=== PATIENT | female | born 1935 ===

== ENCOUNTER 2024-07-30 13:10 | Outpatient (AMB) | payer MEDICARE, SELFPAY ==
--- NOTE | 2024-07-30 13:13 | MHC.PC.OV ---
Vital Signs 07/30/24 13:27 07/30/24 14:14 Height 5 ft 6 in Weight 160 lb BMI 25.8 BP 162/77 H 130/76 Blood Pressure Location Lt brachial Lt brachial Position Sitting Sitting Respiration 16 Pulse 64 Pulse Source Pulse Oximeter Temp 98.7 F Temp Source Oral Pulse Oximetry (%) 97 Oxygen Delivery Method Room Air Intake Visit Reasons: [facility] Care/ Prescriptions Intake Note: patient here for new patient visit needs prescription. 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 Is last menstrual period known: No Post menopausal: No Patient : No Allergies Penicillins Allergy (Intermediate, Verified 07/30/24 13:42) Rash Medication List - Last Reconciled 07/30/24 by Aayush Roach CNP alendronate 70 mg PO QWEEK hydrochlorothiazide 25 mg PO DAILY letrozole 2.5 mg PO DAILY levothyroxine (Synthroid) mcg PO losartan 50 mg PO DAILY metoprolol succinate ER mg PO omeprazole 20 mg PO DAILY Tobacco use date assessed: 07/30/24 Fall risk assessment: 2 + Falls in past year Last assessed Fall Risk: 07/30/24 Dental Screening Dental Screen Date: 07/30/24 Did you have a dental visit in the last 12 months?: Yes Did you have a dental problem in the last 6 months where you did not have access to dental care?: No Was dental information given to patient?: Patient has dentist HPI HPI Comments History of Present Illness Details 89-year-old female, accompanied by her niece, presents to [facility]. She admits to taking her medications as prescribed without adverse reactions. Prior PCP? - Dr. Ricardo [facility] Last office visit - 6 months ago Last CPE/labs - Over a year Acute issue(s) - Wheelchair bound. She notes that she developed abnormal gait after she completed chemo/radiation for endometrial cancer in 2019. Her lower extremities became weak and would fall with walking. She currently receives OT twice weekly. She has history of home PT twice weekly; awaiting health insurance approval to resume PT. - Reports chronic fatigue following chemo and radiation therapy for endometrial cancer in 2019. 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 She notes burning sensation to the left foot especially at night. She tried gabapentin without relief. Past Medical History - Hypertension, hypothyroidism, GERD, osteoporosis, back disorder, endometriosis cancer, macular degeneration both eyes, urinary incontinence (r/t radiation), neuropathy Surgical History - Thyroidectomy, total hysterectomy, bilateral knee replacement, left hip replacement, cataract surgery both eyes Family History - Social History - Nonsmoker. Does not vape. Does not drink alcohol. Denies recreational drug use - Has been making healthy dietary choices. Exercises routinely. Generally sleep well Health maintenance - Last was in 08/[address] Sullivan - Last dental visit was 3 months ago - Last tetanus vaccine is within 10 years - Has not been vaccinated for the flu this season; declines vaccination - She notes that she is up-to-date on shingles and pneumonia vaccines - She no longer perform pap smear - Last mammogram was 3 years ago: Densed breast tissue. She no longer wish to continue mammogram - Last colonoscopy 25 years ago: Normal. She no longer performs colonoscopy - Last dexa scan in the fall Specialists [facility] endocrinology, oncology, and urology Retina specialist at [facility] Dr Sullivan, department of natural resources officer [facility] Medical History (Updated 07/30/24 @ 14:26 by Aayush Roach CNP) Cataract Endometrial cancer Neuropathy Incontinence Back disorder Swelling of both ankles Osteoporosis Arthritis FH: thyroid disease High blood pressure Surgical History (Updated 07/30/24 @ 13:48 by Eliz Mckeon MA) History of thyroidectomy H/O: hysterectomy History of bilateral knee replacement History of left hip replacement Social History Housing: House Patient Tobacco Use Status: Never used Tobacco e-Cigarette/Vaping Use: Never Used Second Hand Smoke Exposure: No service: No Current occupational status: retired Current occupational exposures/hazards: No Cognitive needs: Yes Hearing needs: No Vision needs: Yes Questionnaire PHQ-9 Over the last 2 weeks, how often have you been bothered by any of the following problems? 1. Little interest or pleasure in doing things: not at all 2. Feeling down, depressed, or hopeless: not at all 3. Trouble falling or staying asleep, or sleeping too much: not at all 4. Feeling tired or having little energy: more than half the days 5. Poor appetite or overeating: not at all 6. Feeling bad about yourself - or that you are a failure or have let yourself or your family down: not at all 7. Trouble concentrating on things, such as reading the newspaper or watching television: not at all 8. Moving or speaking so slowly that other people could have noticed. Or the opposite - being so fidgety or restless that you have been moving around a lot more than usual: not at all 9. Thoughts that you would be better off or of hurting yourself in some way: not at all Total score: 2 Depression Screening Interpretation: Negative Depression Screening Done: Yes 20133 - PHQ-9 Billing: Yes Source: Developed by Drs. Aaron Sanchez, Leanne Cornell, Chad Pierce and colleagues, with an educational paola from [employer]. Thrive Questionnaire Date Thrive assessed: 07/30/24 I am a: Patient What is your living situation today?: I choose not to answer this question Within the past 12 months, did the food you bought not last and you didn't have the money to get more?: I choose not to answer this question Within the past 12 months, did you worry whether your food would run out before you got money to buy more?: Never true Do you have trouble paying for medicines?: I choose not to answer this question Do you have trouble getting transportation to medical appointments?: Yes Do you have trouble paying your heating and electricity bill?: I choose not to answer this question Do you have trouble taking care of your child, family member or friend?: I choose not to answer this question Do you have trouble with day-to-day activities such as bathing, preparing meals, shopping, managing finances, etc.?: I choose not to answer this question Are you currently unemployed and looking for a job?: No Are you interested in more education?: No Please select the resources that you would like help with: Transportation and Care for elder or disabled Currently or been in a relationship where the following occur: I choose not to answer THRIVE Score: 1 AUDIT C Alcohol Use Questionnaire (AUDIT-C) 1. How often do you have a drink containing alcohol?: Never 3. How often do you have six or more drinks on one occasion?: Never Total Score: 0 Score Reviewed/Action Taken: Yes LANDON-7 AMB Questionnaire LANDON-7 Date LANDON - 7 assessed: 07/30/24 Feeling nervous, anxious, or on edge: 0 = Not at all Not being able to stop or control worryin = Not at all Worrying too much about different things: 0 = Not at all Trouble relaxin = Not at all Being so restless that it is hard to sit still: 0 = Not at all Becoming easily annoyed or irritable: 0 = Not at all Feeling afraid as if something awful might happen: 0 = Not at all Total LANDON-7 score (0-4 normal; 5-9 mild; 10-14 moderate; 15-21 severe): 0 Source: Developed by Drs. Aaron Sanchez, Leanne Cornell, Chad Pierce and colleagues, with an educational paola from [employer]. LANDON-7 Assessment Billing LANDON-7 Assessment Tool: LANDON-7 Assessment 34848 Review of Systems Const Details: Denies chills, Reports fatigue, Denies fever(s), Denies headache(s) and Denies weakness HEENT Denies change in vision, Denies dizziness, Denies headache(s), Denies hearing loss, Denies nasal congestion, Denies sinus pain, Denies sinus pressure and Denies sore throat Card Denies chest pain, Denies lightheadedness, Denies dyspnea and Denies other (palpitations) Resp Denies cough, Denies dyspnea and Denies wheezing GI Denies abdominal pain, Denies melena, Denies hematochezia, Denies change in bowel habits, Denies dyspepsia and Denies nausea Denies hematuria and Denies dysuria Musc Denies abnormal gait, Denies myalgias, Denies arthralgias, Denies numbness and Denies tingling Skin/Breast Denies rash, Denies unusual bruising and Denies wounds Neuro Denies abnormal gait, Denies dizziness, Denies headache(s), Denies memory loss, Denies numbness, Denies Sensory deficit (Neuro), Denies tingling and Denies weakness Psych Denies anxiety, Denies depression and Denies memory loss Endo Denies cold intolerance, Reports fatigue, Denies heat intolerance, Denies polydipsia and Denies polyuria Geoff/Lymph Denies easy bleeding and Denies easy bruising Aller/Immun Denies wheezing Physical exam (Primary Care) Vital Signs: Last Vital Signs Temp 98.7 F 07/30/24 13:27 Pulse 64 07/30/24 13:27 Resp 16 04/29/25 13:27 BP 162/77 H 07/30/24 13:27 Pulse Ox 97 07/30/24 13:27 Oxygen Delivery Method Room Air 07/30/24 13:27 BMI result Body Mass Index 25.8 Tobacco/Smoking Status: Tobacco use Status Tobacco use date assessed 07/30/24 07/30/24 13:18 Patient Tobacco Use Status Never used Tobacco 07/30/24 13:27 e-Cigarette/Vaping Use Never Used 07/30/24 13:27 PHQ-9: PHQ-9 Score PHQ-9: Total score 2 07/30/24 13:18 Depression Screening Interpretation: Negative Thrive Assessment: Date of Thrive Assessment Date Thrive assessed 07/30/24 07/30/24 13:18 Currently or been in a relationship where the following occur: I choose not to answer Const Other: General: no acute distress, well developed, alert and awake Nutritional Appearance: well nourished Orientation/consciousness: patient oriented x3 HENMT Head: Yes normocephalic and Yes atraumatic Ears: hearing grossly normal bilaterally and TM's normal bilaterally General nose exam: Normal external nose present and Normal nares present Mouth: Normal oral and palatal mucosa present and moist mucous membranes Teeth and gingiva: dentition normal Throat: Yes oropharynx normal Eyes Pupils: Equal, round and reactive pupils present and Pupil accommodation reflex normal EOM: EOMs intact bilaterally Neck Neck: Yes normal visual inspection, Yes no lymphadenopathy and Yes trachea midline Thyroid: Thyroid normal Carotids: no bruits Lymphatic: no lymphadenopathy noted Chest Chest palpation & inspection: normal inspection of the chest Resp Effort & Inspection: normal respiratory effort Auscultation: clear to auscultation bilaterally Cardio Rate: regular rate Rhythm: regular rhythm Heart sounds: S1 normal heart sound present, S2 normal heart sound present, no gallops, no murmurs and no rubs Bruits: no abdominal aortic bruits and no carotid bruits GI Palpation (GI): No Abdominal aortic bruit present, Soft to palpation, nontender, No hepatosplenomegaly present and No Rebound tenderness present Auscultation: normal bowel sounds General: Yes no CVA tenderness Back/Spine/Pelvis Back: no CVA tenderness Cervical Spine: cervical ROM normal and No Cervical spine tenderness Thoracic/Lumbar Spine: thoraco-lumbar ROM normal, No pain with thoraco-lumbar ROM, No thoracic spinal tenderness and No lumbar spinal tenderness Skin General: warm and dry. Normal skin color. Normal skin turgor Lesions: no lesions Rashes: no rashes Trauma: no lacerations or abrasions Wounds: no wounds Nails: normal Neuro General: patient oriented x3, gait normal and CN's II-XI intact bilaterally Cranial nerves: Yes Equal, round and reactive pupils present Cognition (Neuro): normal cognition Gait exam (Neuro): Not assessed Motor exam (neuro): 5/5 motor strength present throughout Sensory Exam: No Sensory deficit (Neuro) Deep tendon reflexes (DTR's): Not assessed Extrem General: Yes normal to inspection, No edema and No calf tenderness Psych Appearance: grossly normal Affect: normal affect Attitude: cooperative Thought process: Normal thought process present Coding Level of Care Code New Pt Level 3 (75089) New Pt Prev Care >65yr (17466) Diagnoses Encounter for routine adult physical exam with abnormal findings Z00.01 High blood pressure I10 Neuropathy of left foot G57.92 Chronic fatigue R53.82 Laboratory tests ordered as part of a complete physical exam (CPE) Z00.00 Additional Codes LANDON-7 Assessment Billing - LANDON-7 Assessment Tool: LANDON-7 Assessment 92539 ([id number]) PHQ-9 - 59017 - PHQ-9 Billing: Yes ([id number]) Assessment & Plan Assessment & Plan (1) Encounter for routine adult physical exam with abnormal findings: Code(s): Z00.01 - Encounter for general adult medical examination with abnormal findings Category: Medical Plan: Significant functional limitation noted due to chronic lower extremity weakness. Patient is wheelchair-bound. She had a fall in March 2024. Instructed on safety to prevent fall. Continue current treatment regimen. Healthy diet and routine exercise encouraged. Verbalized understanding and agreed with the plan. (2) High blood pressure: Code(s): I10 - Essential (primary) hypertension Category: Medical Plan: Resting blood pressure is 130/76, within goal of less than 140/90. Continue current treatment regimen. Will continue to monitor. Verbalized understanding and agreed with the plan. 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 She notes burning sensation to the left foot especially at night. She tried gabapentin without relief. Will check vitamin B12 and folate levels. May take Tylenol ibuprofen as needed for pain or discomfort. Warm/cool compresses encouraged. Follow-up as needed. Verbalized understanding and agreed with the plan. (4) Chronic fatigue: Code(s): R53.82 - Chronic fatigue, unspecified Category: Medical Plan: Reports chronic fatigue following chemo and radiation therapy for endometrial cancer in 2019. Likely related to chem and radiation therapy. Will check labs and make changes as needed. Verbalized understanding and agreed with the plan. (5) Laboratory tests ordered as part of a complete physical exam (CPE): Code(s): Z00.00 - Encounter for general adult medical examination without abnormal findings Category: Medical Plan: Fasting labs ordered as part of a complete physical exam. Advised to fast for at least 10 hours before getting labs drawn. May drink water Verbalized understanding and agreed with treatment plan. Orders: Orders Comprehensive Graham. Panel Fast Today Z00.00 - Encounter for general adult medical examination without abnormal findings Lipid Panel Today Z00.00 - Encounter for general adult medical examination without abnormal findings TSH reflex Free T4 Today Z00.00 - Encounter for general adult medical examination without abnormal findings Vitamin B12 and Folate Today Z00.00 - Encounter for general adult medical examination without abnormal findings UA CC w/rflx Micro + Cult Today Z00.00 - Encounter for general adult medical examination without abnormal findings Complete Blood Count Auto Diff Today Z00.00 - Encounter for general adult medical examination without abnormal findings Microalbumin, Random (w Creat) Today Z00.00 - Encounter for general adult medical examination without abnormal findings Vitamin D 25-OH Total Today G57.92 - Unspecified mononeuropathy of left lower limb
[2024-07-30 13:27] VITALS: BP 162/77; PULSE 64; RESP 16; TEMP 37.1; O2SAT 97; BMI 25.8
[2024-07-30 14:14] VITALS: BP 130/76
== END 2024-07-30 14:28 | disposition home or self-care (01) ==
LOC: HO.HMCFM 13:10
PROVIDERS: PCP Nurse Practitioner Family; Visit Provider Nurse Practitioner Family
DX: I10 Essential (primary) hypertension (principal); G57.92 Unspecified mononeuropathy of left lower limb; R53.82 Chronic fatigue, unspecified

== ENCOUNTER → 2024-07-30 13:10 | Outpatient (BNVA) | payer MEDICARE, SELFPAY | PROVIDERS: PCP Nurse Practitioner Family; Visit Provider Nurse Practitioner Family | DX: Z00.01 Encounter for general adult medical examination with abnormal findings (principal); I10 Essential (primary) hypertension; G57.92 Unspecified mononeuropathy of left lower limb; R53.82 Chronic fatigue, unspecified | CPT/HCPCS: 96127; 99202 ==

== ENCOUNTER 2024-08-13 14:23 | Outpatient (REF) | payer MEDICARE, SELFPAY ==
[2024-08-13 18:04] LABS: MANUAL DIFF FLAG NO
[2024-08-13 18:13] LABS: Basophils Percent Auto 0.7 % (0-2); Eosinophils Absolute Auto 0.1 X10*3/uL (0.0-0.4); Eosinophils Percent Auto 2.1 % (0-4); Hematocrit 34.8 % (37.0-47.0); Hemoglobin 11.7 g/dl (12.0-16.0); Imm Gran Abs Auto 0.03 X10*3/uL (0.00-0.03); Imm Gran Pct Auto 0.5 % (0.0-0.4); Lymphocytes Absolute Auto 1.3 X10*3/uL (1.2-4.9); Lymphocytes Percent Auto 22.7 % (20-40); Mean Corpuscular HGB Conc 33.6 g/dl (31.0-35.0); Mean Corpuscular Hemoglobin 34.2 pg (27.0-33.0); Mean Corpuscular Volume 101.8 fL (80.0-98.0); Mean Platelet Volume 10.9 fL (9.4-12.3); Monocytes Absolute Auto 0.7 X10*3/uL (0.1-1.2); Monocytes Percent Auto 11.6 % (2-11); Neutrophils Absolute Auto 3.5 x10*3/uL (2.0-8.3); Neutrophils Percent Auto 62.4 % (45-73); Platelet Count 282 X10*3/uL (160-400); Red Blood Count 3.42 X10*6/uL (4.20-5.50); Red Cell Distribution Width 13.2 % (11.0-16.0); White Blood Count 5.7 X10*3/uL (4.8-10.8)
[2024-08-13 18:42] LABS: Alanine Aminotransferase 11 U/L (0-31); Alkaline Phosphatase 44 U/L (39-117); Anion Gap 15 (12-20); Aspartate Amino Transferase 23 U/L (5-31); Bilirubin Total 0.6 mg/dL (0.0-1.0); Blood Urea Nitrogen 21 mg/dL (9-16); Calcium 9.6 mg/dL (8.4-10.2); Carbon Dioxide 27 mmol/L (22-29); Chloride 98 mmol/L (96-108); Cholesterol 216 mg/dL (<200); Estimated Glomerular Filt Rate > 60; Glucose Fasting 88 mg/dL (60-99); HDL Cholesterol 66 mg/dL (>40); LDL Cholesterol Calculated 134 mg/dL (<100); Potassium 3.5 mmol/L (3.3-5.1); Sodium 136 mmol/L (135-145); Total Protein 7.2 g/dL (6.5-8.0); Triglycerides 80 mg/dL (<150)
[2024-08-13 18:50] LABS: TSH reflex Free T4 1.31 uIU/mL (0.32-4.0); Vitamin D 25-OH Total 68.8 ng/mL (>30)
[2024-08-13 19:04] LABS: Folate 14.6 ng/mL (> or = 4.0); Vitamin B12 556 pg/mL (200-900)
== END 2024-08-13 14:24 | disposition home or self-care (01) ==
LOC: HO.WFDLDS 14:23
PROVIDERS: Visit Provider Nurse Practitioner Family
DX: Z00.00 Encounter for general adult medical examination without abnormal findings (principal); G57.92 Unspecified mononeuropathy of left lower limb; Z13.6 Encounter for screening for cardiovascular disorders
CPT/HCPCS: 36415; 80053; 80061; 82306; 82607; 82746; 84443; 85025

== ENCOUNTER 2024-08-15 17:29 | Outpatient (REF) | payer MEDICARE, SELFPAY ==
[2024-08-15 17:42] LABS: Appearance Urine Turbid; Color Urine Yellow; Glucose Urine UA Negative (Negative); Leukocyte Esterase Urine Large (3+) (Negative); Nitrite Urine Positive (Negative); Specific Gravity - Urine 1.015 (1.005-1.025); UMIC TRIGGER UACC YES; Urine Blood Trace (Negative); Urine Ketones Negative (Negative); Urine Protein 30 (1+) mg/dL (Neg-Trace)
[2024-08-15 18:02] LABS: Bacteria Urine 4+ (None Seen); RBC Urine 0-2 /HPF (0-2); Squamous Epithelial Cell Urine 0-2 /HPF (0-2); UACC Culture Trigger YES; WBC Urine >50 /HPF (0-5)
[2024-08-15 18:13] LABS: Creatinine Urine 72.71 mg/dL
== END 2024-08-15 17:30 | disposition home or self-care (01) ==
LOC: HO.LNP 17:29
PROVIDERS: Visit Provider Nurse Practitioner Family
DX: I10 Essential (primary) hypertension (principal); Z00.00 Encounter for general adult medical examination without abnormal findings
CPT/HCPCS: 81001; 82043; 82570; 87086; 87088; 87186

== ENCOUNTER 2024-08-20 16:14 | Outpatient (AMB) | payer MEDICARE, SELFPAY ==
--- NOTE | 2024-08-20 15:33 | A.OFFPC_ITS ---
Intake Visit Reasons: Telehealth 2-3 wks labs review Intake Note: patient here for 2-3 wks telehealth follow up for lab review Data Architect Manager Required: No Is last menstrual period known: No Post menopausal: No Patient : No Allergies Penicillins Allergy (Intermediate, Verified 08/20/24 16:07) Rash Tobacco use date assessed: 08/20/24 Fall risk assessment: 1 Fall in past year Last assessed Fall Risk: 08/20/24 Dental Screening Dental Screen Date: 08/20/24 Did you have a dental visit in the last 12 months?: Yes Did you have a dental problem in the last 6 months where you did not have access to dental care?: No Was dental information given to patient?: Patient has dentist HPI HPI Comments History of Present Illness Details 89-[facility] of recent lab results. She admits to taking her medications as prescribed without adverse reactions. She notes that she drinks two bottles of water daily during the early hours. She drinks less at night due to urinary incontinence. She offers no complaints and denies acute symptoms at this time. [facility] Medical History (Updated 08/20/24 @ 17:09 by Aayush Roach CNP) Cataract Endometrial cancer Neuropathy Incontinence Back disorder Swelling of both ankles Osteoporosis Arthritis FH: thyroid disease High blood pressure Surgical History History of thyroidectomy H/O: hysterectomy History of bilateral knee replacement History of left hip replacement Social History Housing: House Patient Tobacco Use Status: Never used Tobacco e-Cigarette/Vaping Use: Never Used Second Hand Smoke Exposure: No service: No Current occupational status: retired Current occupational exposures/hazards: No Cognitive needs: Yes Hearing needs: No Vision needs: Yes Questionnaire Thrive Questionnaire Date Thrive assessed: 07/30/24 LANDON-7 AMB Questionnaire LANDON-7 Date LANDON - 7 assessed: 07/30/24 Source: Developed by Drs. Aaron Sanchez, Leanne Cornell, Chad Pierce and colleagues, with an educational paola from [employer]. Review of Systems Const Details: Denies chills, Denies fatigue, Denies fever(s), Denies headache(s) and Denies weakness Cardiac Denies chest pain, Denies claudication, Denies leg edema, Denies lightheadedness, Denies palpitations, Denies dyspnea, Denies dyspnea on exertion, Denies orthopnea and Denies other (Loss of consciousness) Resp Denies cough, Denies excessive phlegm production, Denies dyspnea, Denies dyspnea on exertion, Denies snoring and Denies wheezing Physical exam (Primary Care) Tobacco/Smoking Status: Tobacco use Status Tobacco use date assessed 07/30/24 08/20/24 15:36 Patient Tobacco Use Status Never used Tobacco 08/20/24 15:36 e-Cigarette/Vaping Use Never Used 08/20/24 15:36 Thrive Assessment: Date of Thrive Assessment Date Thrive assessed 07/30/24 08/20/24 15:36 Const Other: Patient is alert and oriented x3 Telehealth Telehealth Telehealth Platform: Telephone Location of provider rendering services: practice address Location of patient: address on file Patient Identification confirmed using: Name, : Yes Telehealth method: voice only Patient verbally consented to treatment: Yes Patient verbally consented to billing insurance company: Yes Patient informed of any privacy concerns related to visit: Yes Coding Level of Care Code Tele Est Pt Level 3 (69617) Diagnoses Hypercholesterolemia E78.00 Macrocytic anemia D53.9 Microalbuminuria R80.9 UTI (urinary tract infection) N39.0 Time Spent (min) 20 Assessment & Plan Assessment & Plan (1) Hypercholesterolemia: Code(s): E78.00 - Pure hypercholesterolemia, unspecified Category: Medical Plan: She denies consuming significant amount of saturated or trans fat. Her father had history of HLD. Recent total cholesterol and LDL a slightly elevated, 216 and 134 respectively. Triglycerides and HDL levels are normal. She does not want to initiate medication treatment at this time and will continue with dietary changes. Advised to limit foods high in saturated fat and avoid foods high in trans fat. Routine exercise encouraged. Fast for 10-12 hours, may drink water, but from lipid panel blood work 2-3 days before next visit. Follow-up in 3 months or sooner with symptoms or concerns. Verbalized understanding and agreed with treatment plan. (2) Macrocytic anemia: Code(s): D53.9 - Nutritional anemia, unspecified Category: Medical Plan: Recent RBC and H&H are slightly low, 3.42 and 11.7/34.8 respectively. MCV is slightly elevated 101.8. Vitamin B12 and folate level is normal. Likely anemia of chronic disease such as hypertension and osteoporosis. Will check iron profile and ferritin levels. Will repeat CBC in 3 months. Verbalized understanding and agreed with treatment plan. (3) Microalbuminuria: Code(s): R80.9 - Proteinuria, unspecified Category: Medical Plan: She drinks two bottles of water daily during the early hours. She drinks less at night due to urinary incontinence. Recent urine microalbumin/creatinine ratio is elevated, 187. BUN/creatinine levels are normal. Likely dehydration. Adequate hydration encouraged. Will repeat urine microalbumin/creatinine ratio and will make changes as needed. Verbalized understanding and agreed with the plan. (4) UTI (urinary tract infection): Code(s): N39.0 - Urinary tract infection, site not specified Category: Medical Plan: Recent UA/culture revealed UTI. Macrobid 100 mg daily ordered earlier today; advised to continue to take as prescribed. Follow-up with symptoms or concerns. Verbalized understanding and agreed with the plan. Orders: Orders Complete Blood Count no Diff 3 Months D53.9 - Nutritional anemia, unspecified IRON PROFILE 3 Months D53.9 - Nutritional anemia, unspecified Lipid Panel 3 Months E78.00 - Pure hypercholesterolemia, unspecified Microalbumin, Random (w Creat) 3 Months R80.9 - Proteinuria, unspecified Ferritin 3 Months D53.9 - Nutritional anemia, unspecified
== END 2024-08-20 17:13 | disposition home or self-care (01) ==
LOC: HO.HMCFM 16:14
PROVIDERS: PCP Nurse Practitioner Family; Visit Provider Nurse Practitioner Family
DX: E78.00 Pure hypercholesterolemia, unspecified (principal); D53.9 Nutritional anemia, unspecified; R80.9 Proteinuria, unspecified; N39.0 Urinary tract infection, site not specified

== ENCOUNTER → 2024-08-20 16:14 | Outpatient (BNVA) | payer MEDICARE, SELFPAY | PROVIDERS: PCP Nurse Practitioner Family; Visit Provider Nurse Practitioner Family ==

== ENCOUNTER 2024-11-25 12:38 | Outpatient (AMB) | payer MEDICARE, SELFPAY ==
--- NOTE | 2024-11-25 12:48 | MHC.PC.OV ---
Vital Signs 11/25/24 12:55 11/25/24 13:34 Height 5 ft 6 in BMI Reason not done Patient refused/unable BP 208/91 H 150/66 H Blood Pressure Location Lt brachial Lt brachial Position Sitting Respiration 16 Pulse 60 60 Pulse Source Pulse Oximeter Temp 99.1 F Temp Source Oral Pulse Oximetry (%) 98 Oxygen Delivery Method Room Air Intake Visit Reasons: 3 mos HTN, labs review Intake Note: patient here for 3 month follow up on HTN and lab review Forensic Dna Analyst Required: No Is last menstrual period known: No Post menopausal: No Patient : No Allergies Penicillins Allergy (Intermediate, Verified 11/25/24 13:08) Rash Medication List - Last Reconciled 11/25/24 by Aayush Roach CNP alendronate 70 mg PO QWEEK hydrochlorothiazide 25 mg PO DAILY letrozole 2.5 mg PO DAILY levothyroxine (Synthroid) mcg PO losartan 50 mg PO DAILY metoprolol succinate ER 37.5 mg (1.5 x 25 mg) PO DAILY omeprazole 20 mg PO DAILY Tobacco use date assessed: 11/25/24 Fall risk assessment: 1 Fall in past year Last assessed Fall Risk: 11/25/24 Dental Screening Dental Screen Date: 11/25/24 Did you have a dental visit in the last 12 months?: No Did you have a dental problem in the last 6 months where you did not have access to dental care?: No Was dental information given to patient?: Patient has dentist HPI HPI Comments History of Present Illness Details 89-year-old female, accompanied by her niece, presents for hypertension and review of recent labs results. She admits to taking her medications as prescribed without adverse reactions. She notes that she has been making healthy lifestyle choices, including low-sodium diet. Her home blood pressure readings between the past 1 month is between 117-152/60-83, HR 55-68 She offers no complaints and denies acute symptoms at this time. She did not get lab work done for this visit as planned. She has difficulty getting around or ambulating. However, she has been fasting for over 10 hours and will get lab work done today. She presents an old ordered for fluocinolone acetonide oil for history of itching in both ears and requests a refill. No acute symptoms at this time. She request VNA services with [facility]. She was in a wheel chair and was wheeled in and out of the office by her niece. 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 Social History Housing: House Patient Tobacco Use Status: Never used Tobacco e-Cigarette/Vaping Use: Never Used Second Hand Smoke Exposure: No Patient : No service: No Current occupational status: retired Current occupational exposures/hazards: No Cognitive needs: Yes Hearing needs: No Vision needs: Yes Questionnaire Thrive Questionnaire Date Thrive assessed: 07/30/24 I am a: Patient What is your living situation today?: I choose not to answer this question Within the past 12 months, did the food you bought not last and you didn't have the money to get more?: I choose not to answer this question Within the past 12 months, did you worry whether your food would run out before you got money to buy more?: Never true Do you have trouble paying for medicines?: I choose not to answer this question Do you have trouble getting transportation to medical appointments?: Yes Do you have trouble paying your heating and electricity bill?: I choose not to answer this question Do you have trouble taking care of your child, family member or friend?: I choose not to answer this question Do you have trouble with day-to-day activities such as bathing, preparing meals, shopping, managing finances, etc.?: I choose not to answer this question Are you currently unemployed and looking for a job?: No Are you interested in more education?: No Currently or been in a relationship where the following occur: I choose not to answer THRIVE Score: 1 LANDON-7 AMB Questionnaire LANDON-7 Date LANDON - 7 assessed: 07/30/24 Source: Developed by Drs. Aaron Sanchez, Leanne Cornell, Chad Pierce and colleagues, with an educational paola from [employer]. Review of Systems Const Details: Const Denies chills, Denies fatigue, Denies fever(s), Denies headache(s) and Denies weakness ENT Denies dizziness and Denies headache(s) Card Denies chest pain, Denies lightheadedness, Denies dyspnea and Denies other (Palpitations) Resp Denies cough, Denies dyspnea, Denies wheezing and Denies other ( shortness of breath) GI Denies abdominal pain, Denies melena, Denies hematochezia, Denies change in bowel habits, Denies dyspepsia and Denies nausea Denies hematuria and Denies dysuria Musc Reports abnormal gait, Denies myalgias, Denies arthralgias, Denies numbness and Denies tingling Skin/Breast Denies rash, Denies unusual bruising and Denies wounds Neuro Reports abnormal gait, Denies dizziness, Denies headache(s), Denies memory loss, Denies numbness, Denies Sensory deficit (Neuro), Denies tingling and Denies weakness Psych Denies anxiety, Denies depression, Denies memory loss Endo Denies cold intolerance, Denies fatigue, Denies heat intolerance, Denies polydipsia and Denies polyuria Aller/Immun Denies wheezing Physical exam (Primary Care) Vital Signs: Last Vital Signs Temp 99.1 F 11/25/24 12:55 Pulse 60 11/25/24 12:55 Resp 16 11/25/24 12:55 BP 208/91 H 11/25/24 12:55 Pulse Ox 98 11/25/24 12:55 Oxygen Delivery Method Room Air 11/25/24 12:55 Tobacco/Smoking Status: Tobacco use Status Tobacco use date assessed 11/25/24 11/25/24 12:56 Patient Tobacco Use Status Never used Tobacco 11/25/24 12:49 e-Cigarette/Vaping Use Never Used 11/25/24 12:49 Thrive Assessment: Date of Thrive Assessment Date Thrive assessed 07/30/24 11/25/24 12:49 Currently or been in a relationship where the following occur: I choose not to answer Const Other: General: no acute distress and well developed Nutritional Appearance: well nourished Orientation/consciousness: patient oriented x3 HENMT Head: Yes normocephalic and Yes atraumatic Eyes General: appearance normal, both eyes and all related structures Pupils: Equal, round and reactive pupils present EOM: EOMs intact bilaterally Resp Effort & Inspection: normal respiratory effort Auscultation: clear to auscultation bilaterally Cardio Rate: regular rate Rhythm: regular rhythm Heart sounds: S1 normal heart sound present, S2 normal heart sound present, no gallops, no murmurs and no rubs GI Palpation (GI): No Abdominal aortic bruit present, Soft to palpation, nontender, No hepatosplenomegaly present and No Rebound tenderness present Auscultation: normal bowel sounds General: Yes no CVA tenderness Back/Spine/Pelvis Back: no CVA tenderness Cervical Spine: cervical ROM normal and No Cervical spine tenderness Thoracic/Lumbar Spine: thoraco-lumbar ROM normal, No pain with thoraco-lumbar ROM, No thoracic spinal tenderness and No lumbar spinal tenderness Extrem General: Yes normal to inspection, No edema and No calf tenderness Skin General: warm and dry. Normal skin color. Normal skin turgor Neuro General: patient oriented x3, gait unsteady and no focal neuro deficit Cranial nerves: Yes Equal, round and reactive pupils present Cognition (Neuro): normal cognition Gait exam (Neuro): Unsteady gait present Sensory Exam: No Sensory deficit (Neuro) Psych Appearance: grossly normal Affect: normal affect Attitude: cooperative Thought process: Normal thought process present Coding Level of Care Code Est Pt Level 4 (67806) Diagnoses High blood pressure I10 Itching of ear L29.9 Risk for falls Z91.81 Unsteady gait R26.81 Assessment & Plan Assessment & Plan (1) High blood pressure: Code(s): I10 - Essential (primary) hypertension Category: Medical Plan: Resting blood pressure is 150/66, above goal of less than 140/90, heart rate is 60. Her home blood pressure readings between the past 1 month is between 117-152/60-83, HR 55-68. Will increase losartan to 75 mg daily; advised to take as prescribed. Instructed on the risks, benefits, and potential adverse reactions of the medication. Continue to take metoprolol and hydrochlorothiazide as prescribed. Low-sodium diet encouraged. Follow-up in 1 month or sooner with symptoms or concerns. Verbalized understanding and agreed with the plan. (2) Itching of ear: Code(s): L29.9 - Pruritus, unspecified Category: Medical Plan: She presents an old ordered for fluocinolone acetonide oil for history of itching in both ears and requests a refill. No acute symptoms at this time. Fluocinolone acetone ordered; advised to is still in both ears as prescribed when she experiences itching. Verbalized understanding and agreed with the plan. (3) Risk for falls: Code(s): Z91.81 - History of falling Category: Medical Plan: Instructed on safety to prevent fall. [facility] (4) Unsteady gait: Code(s): R26.81 - Unsteadiness on feet Category: Medical Plan: Plan as above. Orders: [facility]errals [facility] Referral E78.00 - Pure hypercholesterolemia, unspecified, G57.92 - Unspecified mononeuropathy of left lower limb, I10 - Essential (primary) hypertension, R53.82 - Chronic fatigue, unspecified, R80.9 - Proteinuria, unspecified Medications: New losartan Take with Losartan 50 mg to equal losartan 75 mg daily 25 mg PO DAILY 30 tabs 3RF 30 days fluocinolone acetonide oil 0.01% 5 drps otic (ears) BID 20 mL 0RF 7 days
[2024-11-25 12:55] VITALS: BP 208/91; PULSE 60; RESP 16; TEMP 37.3; O2SAT 98
[2024-11-25 13:34] VITALS: BP 150/66; PULSE 60
--- OUTSIDE RECORDS SUMMARY | 2024-11-25 13:47 | XMS_ITS | Clinical Summary ---
Author Organization [facility] Address [address] [facility] [address] [place] [id number] Phone Care Team Providers Care Senior Maintenance Technician Name Role Phone Mark Mooney MD Primary Care Provider [phone] Social History Tobacco Use Types Packs/Day Years Used Date Smoking Tobacco: Never Assessed Education Answer Date Recorded Are you interested in more education? Not on may e 03/12/2024 Are you concerned about learning? Not on file 03/12/2024 No 03/12/2024 No 03/12/2024 Digital Access Answer Date Recorded No 03/12/2024 No 03/12/2024 Reliable internet access at home? Not on file 03/12/2024 Device with a working camera? Not on file Comments Unknown Sex and Gender Information Value Date Recorded Sex Assigned at Not on file Legal Sex Female 5:44 PM EST Gender Identity Not on file Sexual Orientation Not on file Plan of Treatment Not on file Medical Devices Not on file Insurance MEDICARE PART A & B [facility] MEDICARE SUPPLEMENT Member Subscriber Plan / Payer ([facility] 11/01/2012-) Name:Sheree Carver Relation to Subscriber:Self Name:Sheree Carver Payer ID:[id number] (NAIC) Type:Indemnity Address: [address] [place] [address] MEDICARE PART A & B Member Subscriber Plan / Payer ([facility] [employer] 05/04/2002-) Name:Libertadtom Sheree Danielle Member ID:[id number] Relation to Subscriber:Self Name:Sheree Carver Subscriber ID:[id number] Payer ID:[id number] Group ID:Not on file Type:Medicare [facility] [address] [place] [phone] [facility] MEDICARE SUPPLEMENT Member Subscriber Plan / Payer ([facility] 11/01/2012-) Name:Libertadtom Sheree A Relation to Subscriber:Self Name:Nina Carverricjacoby Santos Payer ID:[id number] (NAIC) Type:Indemnity Address: [address] [place] [address] MEDICARE PART A & B MEDICARE PART A & B MEDICARE PART A & B [facility] [employer] MEDICARE SUPPLEMENT JULIO SAUCEDA [id number] MEDICARE PART A & B MEDICARE PART A & B [employer] MED[employer]ARE SUPPLEMENT MEDICARE PART A & B Member Subscriber Plan / Payer ([facility] 05/04/2002-) Name:Nina Carverricia Danielle Member ID:[id number] Relation to Subscriber:Self Name:Sheree Carver Danielle Subscriber ID:[id number] Payer ID:[id number] Group ID:Not on file Type:Medicare Address: [facility] [address] [place] [phone] [facility] MEDICARE SUPPLEMENT MEDICARE PART A & B [facility] MEDICARE SUPPLEMENT Care Teams Senior Maintenance Technician Relationship Specialty Start Date End Date Mark Mooney MD [address] [place] [address], [address] [place] [address] [email or web address] PCP - General Family Medicine 03/12/24 Additional Source Comments The information contained in this document represents components of the legal health record. It is not the complete legal health record.[facility]
== END 2024-11-25 14:01 | disposition home or self-care (01) ==
LOC: HO.HMCFM 12:39
PROVIDERS: PCP Nurse Practitioner Family; Visit Provider Nurse Practitioner Family
DX: I10 Essential (primary) hypertension (principal); L29.9 Pruritus, unspecified; Z91.81 History of falling; R26.81 Unsteadiness on feet

== ENCOUNTER 2024-11-25 12:38 | Outpatient (REF) | payer MEDICARE, SELFPAY ==
[2024-11-25 17:33] LABS: Hematocrit 35.7 % (37.0-47.0); Hemoglobin 12.3 g/dl (12.0-16.0); Mean Corpuscular HGB Conc 34.5 g/dl (31.0-35.0); Mean Corpuscular Hemoglobin 35.1 pg (27.0-33.0); Mean Corpuscular Volume 102.0 fL (80.0-98.0); NRBC Abs Auto 0.000 X10*3/uL (0.0-0.012); NRBC Pct Auto 0.0 /100WBC (0.0-0.2); Platelet Count 250 X10*3/uL (160-400); Red Blood Count 3.50 X10*6/uL (4.20-5.50); White Blood Count 5.7 X10*3/uL (4.8-10.8)
[2024-11-25 17:53] LABS: Cholesterol 224 mg/dL (<200); HDL Cholesterol 63 mg/dL (>40); Iron 72 mcg/dL (30-160); Percent Iron Saturation 27 % (15-50); Total Iron Binding Capacity 267 mcg/dL (228-428); Triglycerides 109 mg/dL (<150); Unsaturated Iron Binding 195 ug/dL
[2024-11-25 18:16] LABS: Ferritin 139 ng/mL (10-250)
== END 2024-11-25 12:39 | disposition home or self-care (01) ==
LOC: HO.WFDLDS 12:38
PROVIDERS: PCP Nurse Practitioner Family; Visit Provider Nurse Practitioner Family
DX: Z00.00 Encounter for general adult medical examination without abnormal findings (principal); E78.00 Pure hypercholesterolemia, unspecified; D53.9 Nutritional anemia, unspecified; R80.9 Proteinuria, unspecified; I10 Essential (primary) hypertension; L29.9 Pruritus, unspecified; Z91.81 History of falling; R26.81 Unsteadiness on feet
CPT/HCPCS: 36415; 80061; 82728; 83540; 85027; 99212